=== PATIENT | female | born 1990 | race Caucasian/White ===

== ENCOUNTER 2019-12-03 10:37 | Emergency (ER) | payer MEDICAID ==
[~2019-12-03] VITALS: Ht 157.5 cm; Wt 145.6 kg
[2019-12-03 10:49] VITALS: BP 120/72; Ht 157.5 cm; Wt 145.6 kg
== END 2019-12-03 13:01 | disposition home or self-care (01) ==
LOC: ED 10:37
DX: L02.211 Cutaneous abscess of abdominal wall (principal)